=== PATIENT | male | born 1995 | race Two or more races ===

== ENCOUNTER 2022-09-07 17:26 | Emergency (ER) | payer MEDICAID, OTHER ==
[~2022-09-07] VITALS: Ht 182.9 cm; Wt 122.3 kg
[2022-09-07 17:40] VITALS: BP 132/90
[2022-09-07] MEDS ORDERED: SULF400T11 PO (19:58)
[2022-09-07] MEDS ORDERED: cefTRIAXone SOD 1,000 MG VL IM ONE (20:00)
== END 2022-09-07 20:44 | disposition home or self-care (01) ==
LOC: ER 17:26
DX: L03.317 Cellulitis of buttock (principal); F17.210 Nicotine dependence, cigarettes, uncomplicated; Z88.2 Allergy status to sulfonamides
CPT/HCPCS: 96372; 99283; J0696